=== PATIENT | female | born 1975 | race Caucasian/White ===

== ENCOUNTER 2022-03-22 23:53 | Emergency (ER) | payer BC | END 2022-03-23 02:21 | disposition home or self-care (01) | LOC: JP.ED 23:53 | DX: S42.292A Other displaced fracture of upper end of left humerus, initial encounter for closed fracture (principal); Z88.2 Allergy status to sulfonamides; W01.0XXA Fall on same level from slipping, tripping and stumbling without subsequent striking against object, initial encounter | CPT/HCPCS: 73030-LT; 99281; 99283 ==